=== PATIENT | male | born 1945 | race Caucasian/White ===

== ENCOUNTER 2017-05-16 15:40 | Emergency (ER) | payer OTHER ==
[~2017-05-16] VITALS: Ht 188 cm; Wt 103.1 kg
[~2017-05-16 15:40] MED LIST: AMLODIPINE BESY10 MG PO; ASPIR-LOW81 MG PO; BAYER CHILDREN'81 MG PO; BENADRYL50 MG PO; BRILINTA90 MG PO; CRESTOR10 MG PO; CRESTOR5 MG PO; Cozaar PO; DIOVAN HCT 11 TABLET PO; ELIQUIS5 MG PO; FISH OIL 1,4001 EACH PO; HYDROCHLOROTHIA25 MG PO; LEVAQUIN500 MG PO; LOSARTAN POTAS100 MG PO; LOSARTAN-HCTZ1 EAC3 PO; Lopressor PO; METOPROLOL TART25 MG PO; METOPROLOL TART50 MG PO; MULTIVITAMIN1 EAC2 PO; NIASPAN,SLO-NI500 MG PO; NIASPAN500 MG PO; OMEPRAZOLE40 M1 PO; PEPCID40 MG PO; PLAVIX75 MG PO; PREDNISONE20 MG PO; PriLOSEC PO; RED YEAST RICE600 M1 PO; VALSARTAN-HCTZ1 EAC1 PO
[2017-05-16 18:03] LABS: EOSINOPHIL (%) 0.6 % (0-5); EOSINOPHIL COUNT 0.1 K/uL (0-0.3); HEMATOCRIT 44.6 % (38.0-50.0); IMMATURE GRANULOCYTE (%) 0.4 % (0.0-0.7); INSTRUMENT ABS NEUTROPHIL CT 7.1 K/uL; LYMPHOCYTE COUNT 0.8 K/uL (1.0-2.8); MCH 32.8 PG (29.0-34.0); MCHC 33.9 G/DL (30.0-36.0); MEAN PLAT.VOLUME 11.1 uM^3 (9.0-12.4); MONOCYTE (%) 5.9 % (3-12); MONOCYTE COUNT 0.5 K/uL (0-0.8); NEUTROPHIL (%) 83.4 % (45-76); NEUTROPHIL COUNT 7.1 K/uL (1.8-6.4); PLATELET COUNT 164 K/uL (156-360); RBC DIS.WIDTH-CV 13.2 % (11.8-14.6); RBC DIS.WIDTH-SD 47.7 % (39-53); WHITE BLOOD COUNT 8.5 K/uL (4.1-10.2)
[2017-05-16 18:25] LABS: CHLORIDE 104 mEq/L (99-109); POTASSIUM 4.3 mEq/L (3.7-5.4); SODIUM 139 mEq/L (136-147)
[2017-05-16 18:27] LABS: GLUCOSE 122 mg/dL (70-99)
[2017-05-16 18:28] LABS: ANION GAP 8 MEQ/L (2-14)
[2017-05-16 18:29] LABS: TOTAL BILIRUBIN 0.8 mg/dL (0.0-1.0)
[2017-05-16 18:30] LABS: ALKALINE PHOSPHATASE 63 IU/L (3-129)
[2017-05-16 18:31] LABS: GFR ESTIMATE (CALCULATED) > 59 mL/min/
[2017-05-16 18:32] LABS: UREA NITROGEN (BUN) 23 mg/dL (9-23)
[2017-05-16 18:34] LABS: TROP-I INTERPRETATION NEGATIVE; TROPONIN-I < 0.01 ng/mL (0.0-0.30)
[2017-05-16] MEDS ORDERED: ZOFRAN4 MG PO (21:31)
[2017-05-16 21:46] VITALS: BP 123/75
== END 2017-05-16 21:51 | disposition home or self-care (01) ==
LOC: EME 15:40
PROVIDERS: Emergency Medicine
DX: R42 Dizziness and giddiness (principal); R27.0 Ataxia, unspecified; I48.91 Unspecified atrial fibrillation; Z79.01 Long term (current) use of anticoagulants; I10 Essential (primary) hypertension; E78.5 Hyperlipidemia, unspecified; K21.9 Gastro-esophageal reflux disease without esophagitis; I25.10 Atherosclerotic heart disease of native coronary artery without angina pectoris; I25.2 Old myocardial infarction; Z95.5 Presence of coronary angioplasty implant and graft; Z79.02 Long term (current) use of antithrombotics/antiplatelets; Z79.82 Long term (current) use of aspirin
CPT/HCPCS: 70450; 71010; 80053; 84484; 85025; 93005; 99281; 99285; J2405; J7030

== ENCOUNTER 2018-03-21 12:35 | Observation (INO) | payer OTHER ==
[~2018-03-21] VITALS: Ht 188 cm; Wt 104.2 kg
[~2018-03-21 12:35] MED LIST changes: -METOPROLOL TART50 MG PO; +OMEPRAZOLE20 MG PO; +TOPROL XL100 MG PO; +ZOFRAN4 MG PO
[2018-03-21 13:37] LABS: HEMATOCRIT 43.5 % (38.0-50.0); HEMOGLOBIN 14.8 G/DL (12.5-16.6); MCH 33.6 PG (29.0-34.0); MCV 98.9 FL (86-99); PLATELET COUNT 185 K/uL (156-360); RBC DIS.WIDTH-CV 13.9 % (11.8-14.6); RBC DIS.WIDTH-SD 50.8 % (39-53); WHITE BLOOD COUNT 8.4 K/uL (4.1-10.2)
[2018-03-21 13:44] LABS: INTER. NORMALIZED RATIO 1.4
[2018-03-21 13:46] LABS: PTT 28.9 SEC (25-37)
[2018-03-21 13:49] LABS: ALBUMIN 4.4 g/dL (3.2-4.8)
[2018-03-21 13:50] LABS: CHLORIDE 105 mEq/L (99-109); POTASSIUM 5.3 mEq/L (3.7-5.4); SODIUM 144 mEq/L (136-147)
[2018-03-21 13:52] LABS: GLUCOSE 87 mg/dL (70-99); TOTAL PROTEIN 7.1 g/dL (6.4-8.3)
[2018-03-21 13:54] LABS: TOTAL BILIRUBIN 0.7 mg/dL (0.0-1.0)
[2018-03-21 13:55] LABS: ALKALINE PHOSPHATASE 89 IU/L (3-129)
[2018-03-21 13:56] LABS: CREATININE 1.3 mg/dL (0.6-1.3); GFR ESTIMATE (CALCULATED) 58 mL/min/ (58.99-99999)
[2018-03-21 13:57] LABS: AST (GOT) 18 IU/L (2-34); UREA NITROGEN (BUN) 32 mg/dL (9-23)
[2018-03-21 13:58] LABS: ALT (GPT) 20 IU/L (3-49)
[2018-03-21 14:06] LABS: TROP-I INTERPRETATION NEGATIVE; TROPONIN-I 0.02 ng/mL (0.0-0.30)
[2018-03-21 17:02] LABS: TROP-I INTERPRETATION NEGATIVE; TROPONIN-I 0.02 ng/mL (0.0-0.30)
[2018-03-21 18:03] LABS: HDL CHOLESTEROL 44 MG/DL (Desirable>=40); LDL CHOLESTEROL 69 mg/dL (Desirable<100); NON-HDL CHOLESTEROL 95 mg/dL (Desirable<160); TOTAL CHOLESTEROL 139 mg/dL (Desirable<200); TRIGLYCERIDES 128 MG/DL (Normal: <150)
[2018-03-21] MEDS ORDERED: COZAAR25 MG PO (18:12)
[2018-03-21] MEDS ORDERED: LASIX40 MG PO (18:13)
[2018-03-21] MEDS ORDERED: TOPROL XL100 MG PO (18:31)
[2018-03-21 19:10] VITALS: BP 146/83
[2018-03-21 20:19] LABS: TROP-I INTERPRETATION NEGATIVE; TROPONIN-I 0.04 ng/mL (0.0-0.30)
[2018-03-22] VITALS: BP 133/75
[2018-03-22 02:21] LABS: TROP-I INTERPRETATION NEGATIVE; TROPONIN-I 0.01 ng/mL (0.0-0.30)
[2018-03-22 04:12] VITALS: BP 135/73
[2018-03-22 05:13] LABS: HEMATOCRIT 42.2 % (38.0-50.0); HEMOGLOBIN 13.8 G/DL (12.5-16.6); MCH 31.9 PG (29.0-34.0); MCHC 32.7 G/DL (30.0-36.0); MCV 97.5 FL (86-99); PLATELET COUNT 183 K/uL (156-360); RBC DIS.WIDTH-CV 13.7 % (11.8-14.6); RBC DIS.WIDTH-SD 49.6 % (39-53); RED BLOOD COUNT 4.33 M/uL (4.00-5.50); WHITE BLOOD COUNT 8.2 K/uL (4.1-10.2)
[2018-03-22 05:40] LABS: CHLORIDE 106 MEQ/L (99-109); CREATININE 1.1 MG/DL (0.6-1.3); GFR ESTIMATE (CALCULATED) > 59 mL/min/ (58.99-99999); GLUCOSE 84 mg/dL (70-99); POTASSIUM 4.9 MEQ/L (3.7-5.4); SODIUM 144 MEQ/L (136-147); UREA NITROGEN (BUN) 29 mg/dL (9-23)
[2018-03-22 09:15] VITALS: BP 128/80
[2018-03-22] MEDS ORDERED: NITROGLYCERIN0.4 MG SL (10:50)
[2018-03-22 11:50] VITALS: BP 144/90
== END 2018-03-22 13:23 | disposition home or self-care (01) ==
LOC: EME 12:35 → EDOF 17:26 → 4SOUTH 17:26 → EDOF 17:26 → ENRESERV 17:33 → EDOF 17:48 → ENRESERV 17:58 → 4SOUTH 19:01
PROVIDERS: Emergency Medicine; Hospitalist
DX: R07.9 Chest pain, unspecified (principal); I48.91 Unspecified atrial fibrillation; I25.10 Atherosclerotic heart disease of native coronary artery without angina pectoris; I10 Essential (primary) hypertension; Z95.5 Presence of coronary angioplasty implant and graft; Z95.810 Presence of automatic (implantable) cardiac defibrillator; E78.5 Hyperlipidemia, unspecified; I25.2 Old myocardial infarction; K21.9 Gastro-esophageal reflux disease without esophagitis; Z88.1 Allergy status to other antibiotic agents; Z88.8 Allergy status to other drugs, medicaments and biological substances
CPT/HCPCS: 71046; 80048; 80053; 80061; 84484; 85027; 85610; 85730; 93005; 99281; 99285; G0378